=== PATIENT | female | born 1955 | race Caucasian/White ===

== ENCOUNTER 2018-10-11 19:06 | Observation (INO) | payer BC ==
[2018-10-11 20:36] LABS: #Basophils 0.1 thou/uL (0.0-0.2); #Eosinphils 0.1 thou/uL (0.0-0.7); #Lymphocytes 1.6 thou/uL (1.20-3.40); #Monocytes 0.6 thou/uL (0.11-0.59); #Neutrophils 7.1 thou/uL (1.40-6.50); %Basophils 0.6 % (0.0-1.0); %Eosinophils 0.8 % (0.0-10.0); %Lymphocytes 16.4 % (21.0-51.0); %Monocytes 6.6 % (0.0-10.0); %Neutrophils 75.6 % (42.0-75.0); Hemoglobin 13.6 g/dL (12.0-16.0); Mean Corpuscular HGB CONC 31.8 g/dL (32.0-36.0); Mean Corpuscular Hemoglobin 30.9 pg (27.0-31.0); Mean Corpuscular Volume 97.2 fL (78.0-98.0); Mean Platelet Volume 8.6 fL (7.4-10.4); Platelet Count 206 thou/uL (130-400); RBC Distribution Width 12.1 % (11.5-14.5); Red Blood Cell (RBC) Count 4.41 mill/uL (4.20-5.40); White Blood Cell (WBC) Count 9.4 thou/uL (4.8-10.8)
--- NOTE | 2018-10-11 20:43 | CT ---
CT BRAIN 10/11/18 PROVIDED CLINICAL HISTORY: Memory loss and speech problems. FINDINGS: The ventricular system appears normal in size and morphology. There is no evidence for intracranial h emorrhage or mass effect. The extracranial soft tissues and osseous structures demonstrate no acute f indings. IMPRESSION: No evidence for intracranial hemorrhage or mass effect. POS: [facility]
[2018-10-11 20:54] LABS: ALT (SGPT) 14 U/L (8-55); AST (SGOT) 17 U/L (5-34); Albumin 4.6 g/dL (3.4-4.8); Alkaline Phosphatase 80 U/L (40-150); Anion Gap 14 mmol/L (10-20); BUN (Urea Nitrogen) 14 mg/dL (9.8-20.1); Bilirubin, Total 0.4 mg/dL (0.2-1.2); CK (CPK) 113 U/L (29-168); Calc. Creatinine Clearance 0 mL/min (70-130); Calcium 9.5 mg/dL (7.8-10.44); Carbon Dioxide 24 mmol/L (23-31); Chloride 104 mmol/L (98-107); Estimated GFR-MDRD 68; Globulin 2.2 g/dL (2.4-3.5); Glucose 104 mg/dL (80-115); Potassium 3.9 mmol/L (3.5-5.1); Protein, Total 6.8 g/dL (6.0-8.3); Sodium 138 mmol/L (136-145)
--- NOTE | 2018-10-11 23:16 | PDOC.FPRHP ---
- History of Present Illness Chief Complaint: Altered Mental Status History of Present Illness: The patient is a 62 y/o female who presents to the ED with two friends because of AMS. The patient's friends state that the patient had been behaving normally until approximately 6:00 PM, at which point she began to stare off into space. Although she was responsive, the patient's friends state that the patient became disoriented and had no appreciable short-term memory ( i.e. could not remember her name, where she was, how she got there, etc.). This period of AMS lasted approximately 3 hours, and she still did not have any recollection of the day's events at the time of examination in the ED. The patient's friends state that the patient did not display dysarthria, facial grimacing, loss of balance, ataxia, or suffer any noticeable head trauma. Although still somewhat disoriented, the patient denied any history of seizures , headaches, changes or loss of vision, floaters, significant cardiovascular history, significant psychiatric history, recent head trauma, or drug abuse. ED Course: The patient received a CT (Brain) in the ED, which was negative. - Allergies/Adverse Reactions Allergies Allergy/AdvReac Type Severity Reaction Status Date / Time shellfish derived Allergy Severe Rash Verified 10/12/18 00:13 insect venom Allergy Intermediate Swollen Verified 10/12/18 00:15 Lips mold Allergy Intermediate Short of Verified 10/12/18 00:13 Breath Penicillins Allergy Intermediate Short of Verified 10/12/18 00:13 Breath corn Allergy Mild Headache Verified 10/12/18 00:13 Iodinated Contrast Media Allergy Unknown Verified 10/12/18 00:13 azithromycin Allergy Nausea Verified 10/12/18 00:13 citric acid Allergy Stomach Verified 10/12/18 00:13 Ache corn syrup Allergy Headache Verified 10/12/18 00:13 mushroom Allergy Nausea Verified 10/12/18 00:13 Pork/Porcine Containing Allergy Nausea Verified 10/12/18 00:14 Products tramadol [From Ultram] Allergy Nausea Verified 10/12/18 00:13 - Home Medications Medication Instructions Recorded Confirmed Type Lysine [L-lysine] 500 mg PO DAILY 10/11/18 10/11/18 History - History PMHx: HTN, 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 PSHx: Failed Dental Implant (Placed in March and removed in May) FHx: Father (HTN, Dementia, Alzheimer's Disease) Social: Remote Tobacco Abuse (15 PPY, Quit in ), Remote EtOH Abuse (2-3 Drink per Day, Quit in 2011), Denies Drug Abuse - Review of Systems General: denies: fever/chills, weight/appetite/sleep changes, night sweats Eyes: denies: eye pain, vision changes ENT: denies: rhinorrhea Respiratory: denies: cough, shortness of breath Cardiovascular: denies: chest pain Gastrointestinal: denies: nausea, vomiting, diarrhea, abdominal pain Genitourinary: denies: dysuria, discharge Skin: reports: lesions (Complains of occasional oral / vaginal Herpes, contracted in 2012 from ex- (MSM)) Neurological: denies: syncope, seizure, weakness Psychological: denies: anxiety, depression - Vital signs BP: [170/102] HR: [75] RR: [15] Tmax: [98.5] Pox: [98]% on [Room] Wt: [72 kg] - Physical Exam Constitutional: NAD, awake, alert and oriented, well developed HEENT: normocephalic and atraumatic, PERRLA, EOMI, conjunctiva clear, no scleral icterus, grossly normal vision, TM's clear and intact, grossly normal hearing, normal nasal mucosa, MMM, other (Mild granulation tissue noted at dental implant site) Neck: supple, FROM, trachea midline, no LAD, no JVD Chest: no-tender to palpation, no lesions Heart: RRR, normal S1/S2, no murmurs/rubs/gallops, pulses present, no edema Lungs: CTAB, no respiratory distress, good air movement, no rales/rhonchi, no wheezing, no retractions Abdomen: soft, non-tender, no masses/distention Musculoskeletal: normal structure, normal tone, ROM grossly normal Neurological: no focal deficit, CN II-XII intact, normal sensation -Neurological: No changes in sensation, -Dysdiadochokinesia, -[id number], -Past Pointing, - Heel to Jarvis Skin: no rash/lesions, good turgor, no jaundice Heme/Lymphatic: no unusual bruising or bleeding, no petechia, no LAD Psychiatric: normal mood and affect, good judgment and insight FMR H&P: Results - Labs Result Diagrams: 10/11/18 20:26 10/11/18 20:26 Lab results: WBC 9.4 thou/uL (4.8-10.8) 10/11/18 20:26 Hgb 13.6 g/dL (12.0-16.0) 10/11/18 20:26 Hct 42.9 % (36.0-47.0) 10/11/18 20:26 MCV 97.2 fL (78.0-98.0) 10/11/18 20:26 Plt Count 206 thou/uL (130-400) 10/11/18 20:26 Neutrophils % 75.6 % (42.0-75.0) H 10/11/18 20:26 Sodium 138 mmol/L (136-145) 10/11/18 20:26 Potassium 3.9 mmol/L (3.5-5.1) 10/11/18 20:26 Chloride 104 mmol/L (98-107) 10/11/18 20:26 Carbon Dioxide 24 mmol/L (23-31) 10/11/18 20:26 BUN 14 mg/dL (9.8-20.1) 10/11/18 20:26 Creatinine 0.85 mg/dL (0.6-1.1) 10/11/18 20:26 Glucose 104 mg/dL (80-115) 10/11/18 20:26 Calcium 9.5 mg/dL (7.8-10.44) 10/11/18 20:26 Total Bilirubin 0.4 mg/dL (0.2-1.2) 10/11/18 20:26 AST 17 U/L (5-34) 10/11/18 20:26 ALT 14 U/L (8-55) 10/11/18 20:26 Alkaline Phosphatase 80 U/L (40-150) 10/11/18 20:26 Creatine Kinase 113 U/L (29-168) 10/11/18 20:26 Serum Total Protein 6.8 g/dL (6.0-8.3) 10/11/18 20:26 Albumin 4.6 g/dL (3.4-4.8) 10/11/18 20:26 - Radiology Interpretation CT scan - head Status: report reviewed by me (URIEL) Other Additional comment: CTA Head / Neck FMR H&P: A/P - Problem List (1) Altered mental status, unspecified Current Visit: Yes Status: Acute Code(s): R41.82 - ALTERED MENTAL STATUS, UNSPECIFIED (2) HTN (hypertension) Current Visit: Yes Status: Acute Code(s): I10 - ESSENTIAL (PRIMARY) HYPERTENSION - Plan 1. Altered Mental Status TIA vs. Seizure vs. Acute Psychiatric Disturbance Admit to Obs under Stroke Protocol NIH Stroke Scale (0) in ED CTA Head / Neck MRI Brain HbA1C, Lipid Panel Prolactin Level RPR, HIV, HepB & C Panel Consider Neuro Consult Consider Psych Consult Heart Healthy Diet SCDs w/ Enoxaparin 40 mg SC Daily 2. 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 Tenants report that patient suddenly went blank and stopped talking. After a brief period she was able to say "I don't know" when asked questions. She was disoriented but had no changes in speech. There were no reported abnormal movements. Tenants took patient through house to "re-orient" her, but they state they were unsuccessful. They brought her to the ED for further evaluation. Patient able to answer questions appropriately during my evaluation. She states that she thinks maybe she did not drink enough water or eat enough today. Patient states this has not happened previously. She does report an allergy to cellular towers and states that maybe exposure to a cellular tower may be responsible for these symptoms. Patient has not seen a physician since 2011. - Pertinent findings General: Alert and oriented x3. NAD. Very talkative. HEENT: PERRL, EOMI, no facial droop Card: RRR Resp: No respiratory distress Abdomen: Soft, non-tender Ext: No extremity swelling Neuro: Strength 5/5, No focal deficits - Plan Date/Time: 10/11/18 1046 [place], have evaluated this patient and agree with findings/plan as outlined by tax intern resident. Pertinent changes/additions are listed here. AMS likely 2/2 transient global amnesia - No explainable findings for AMS, will rule out TIA - Unlikely seizure given patient had no post-ictal state and no prior history of seizures - Will rule out TIA with CTA head/neck, MRI. - CT brain negative - Patient likely back to baseline - Will hold off on neurology consult pending MRI. If MRI neg will likely d/c home with diagnosis of transient global amnesia - Will risk stratify patient since she has not been to doctor since 2011. HgA1c and FLP pending. - No reason for echo at this time. Low suspicion for cardiac embolic event - Will obtain urine drug screen - PT/OT eval HTN - Treated homeopathically per patient - Allow permissive HTN until completely rule out CVA - Patient would benefit from being started on BP medications at home given initial BP on presentation. Continue to monitor. Previous partner with high risk sexual behavior - Exposure to sexual partner with risky sexual practices (MSM) - No active lesions, but remote history of genital and labial outbreaks - Will check HIV, RPR, Hepatitis panel PT/OT Code status: Full DVT PPX: Lovenox Dispo: Obs on stroke. Plan for possible d/c home tomorrow pending results of above workup. Addendum - Attending - Attending Attestation Date/Time: 10/12/18 [id number] I personally evaluated the patient and discussed the management with Dr. Kumari and team on day of admission. I agree with the History, Examination, Assessment and Plan documented above with any addition or exceptions noted below.
[2018-10-11] MEDS ORDERED: Acetaminophen 325 MG TAB PO PRN (23:34)
[2018-10-11 23:47] VITALS: BMI 24.7
[2018-10-12] MEDS ORDERED: hydrALAZINE 20 MG/ML VIAL SLOW IVP PRN (00:23)
[2018-10-12 00:39] LABS: Syphilis Antibody Nonreactive (Nonreactive); Syphilis Antibody Index 0.08 S/CO (<1.00 Non-Reactive)
[2018-10-12 00:40] LABS: Hep B Core Total Ab Non-Reactive (NonReactive); Hep B Core Total Index 0.15 S/CO (0-0.79)
[2018-10-12 00:44] LABS: HBSAg Index 0.39 S/CO (0-0.99); Hep B Surf Ag Non-Reactive S/CO (NonReactive)
[2018-10-12 00:45] LABS: HBSAB Concentration 1.14 mIU/mL; Hep B Surf AB Non-Reactive (NonReactive); Hep C IgG Ab Non-Reactive (NonReactive)
[2018-10-12 00:46] LABS: HIV (1/2) Antibody/Antigen Non-Reactive (NonReactive)
[2018-10-12 01:26] LABS: Hemoglobin A1c 5.6 % (4.0-6.0)
[2018-10-12] MEDS: predniSONE 50 MG TAB PO SCH ×3 (02:29→14:39)
[2018-10-12 06:07] LABS: Cardiac Risk 4.7 (Less than 4.5)
[2018-10-12] MEDS ORDERED: Lorazepam 1 MG TAB PO PRN (06:59)
--- NOTE | 2018-10-12 07:04 | PDOC.FM ---
- Subjective Subjective: Pt states she has had no further episodes of AMS overnight. Pt states she is feeling fine this morning. Discussed her previous tooth abscess and previous supplementation. - Objective MAR Reviewed: Yes Vital Signs & Weight: Vital Signs (12 hours) Temp Pulse Resp BP Pulse Ox 10/12/18 04:00 97.9 F 65 18 135/70 100 10/11/18 22:47 98.5 F 72 16 155/77 H 99 Weight Weight 71.804 kg I&O: 10/11/18 10/12/18 10/13/18 06:59 06:59 06:59 Intake Total 480 Output Total 800 Balance -320 Result Diagrams: 10/11/18 20:26 10/11/18 20:26 Phys Exam - Physical Examination Constitutional: NAD HEENT: moist MMs Neck: no JVD Respiratory: no wheezing, no rales, no rhonchi, clear to auscultation bilateral Cardiovascular: RRR, no significant murmur Gastrointestinal: soft, non-tender, no distention, positive bowel sounds Musculoskeletal: no edema, pulses present Neurological: non-focal, normal sensation, moves all 4 limbs CNII-XII normal, no cerebellar dysfunction appretiated Lymphatic: no nodes Psychiatric: normal affect, A&O x 3 Skin: cap refill <2 seconds Dx/Plan (1) Altered mental status, unspecified Code(s): R41.82 - ALTERED MENTAL STATUS, UNSPECIFIED Status: Acute (2) HTN (hypertension) Code(s): I10 - ESSENTIAL (PRIMARY) HYPERTENSION Status: Acute - Plan Plan: This is a 62 yo female with no routine medical care and no significant PMH AMS likely 2/2 TIA vs global amnesia -Pending UDS -Pending CTA head and neck (allergy protocol) -Pending MRI brain -Elevated LDL and cholesterol -Normal TSH -Permissive HTN Elevated BP without diagnosis of HTN -Elevated BP on admission, improving -Permissive HTN until TIA is ruled out No consistent Primary care -TSH, A1c, Hep B,C, HIV, RPR negative Supplement use -DK2, vitamin C, olive leaf extract, B complex, Iodine drops, L-lysine Addendum - Attending - Attending Attestation Date/Time: 10/12/18 1053 I personally evaluated the patient and discussed the management with Dr. Perez I agree with the History, Examination, Assessment and Plan documented above with any addition or exceptions noted below. For continued work up AMS note elevated lipid panel. Drug screen pending,no hx migraines, no sign infectious etiology, no evidence seizure activity, BS and electrolytes wnl. Will continue evaluation today with MRI, echocardiogram and carotid doppler. If wnl can consider discharge for further outpatient evaluation and f/u. .Neuro exam non focal. Note some delusional thought processes.
[2018-10-12] MEDS ORDERED: Enoxaparin Sodium 40 MG/0.4 ML SYRINGE SC SCH (09:00)
[2018-10-12] MEDS ORDERED: Aspirin 81 mg Enteric Coated Tablet PO SCH (09:00)
[2018-10-12 10:15] LABS: Amphetamine Not Detected (NotDetected); Barbiturates Screen Not Detected (NotDetected); Benzodiazepine Screen Not Detected (NotDetected); Cocaine Metabolite Screen Not Detected (NotDetected); Medtox Control Line Valid? VALID (VALID); Medtox Reader # READER 1; Methadone Not Detected (NotDetected); Methamphetamine Not Detected (NotDetected); Opiate Screen Not Detected (NotDetected); Oxycodone Screen Not Detected (NotDetected); Phencyclidine (PCP) Not Detected (NotDetected); THC/Cannabinoid Screen Not Detected (NotDetected); Tricyclic Screen Not Detected (NotDetected)
--- NOTE | 2018-10-12 10:48 | MRI ---
MRI BRAIN WITHOUT CONTRAST: HISTORY: Altered mental status CORRELATION: CT scan from 10/11/2018. FINDINGS: No restricted diffusion is seen. There are few foci of T2 prolongation in the periventricular white m atter, consistent with mild chronic small vessel ischemic disease. The ventricular size is appropriate and the basilar cisterns are patent. No evidence of acute infarct, hemorrhage, midline shift or abnormal extra-axial fluid collections is seen. IMPRESSION: No evidence of acute intracranial process.
[2018-10-12 11:33] VITALS: TEMP 98
[2018-10-12] MEDS ORDERED: diphenhydrAMINE 25 MG CAP PO SCH (15:00)
[2018-10-12 15:50] VITALS: BP 125/67
--- NOTE | 2018-10-12 16:46 | CT ---
CT HEAD NONCONTRAST CTA [place] WITH 3D VOLUME RENDERING 10/12/18 CLINICAL HISTORY: History of altered mental status, slurred speech. Reference made to prior brain MRI and head CT 10/12 and 10/11/18, respectively. FINDINGS: Noncontrast brain imaging reveals normal sized ventricular system without acute intracranial hemorrha ge, mass effect or midline shift. Mild chronic microvascular ischemic disease of the cerebral white m atter is present. 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 Otherwise bilateral SARA are patent as are the bilateral MCA and [employer]. The visualized distal ICA, bilaterally, are patent. Cod ominant distal vertebral arteries and basilar artery are patent. 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 There is a focal area of left frontal bone scalloping with an internal mixed density circumscribed focus, which is nonaggressive in appearance. IMPRESSION: 1. No acute abnormality of the [place]. 2. No intracranial hemorrhage or mass effect. 3. Mild chronic microvascular ischemic disease.
--- NOTE | 2018-10-12 17:08 | CT ---
CT ANGIOGRAM OF THE NECK WITH CONTRAST 10/12/18 HISTORY: Altered mental status. COMPARISON: None. FINDINGS: Moderate degenerative disease of the mid cervical spine from C5-C7. No acute fracture. The lung apice s are clear. The visualized portions of the transverse aorta is normal. Ascending aorta measures 3.6 cm in size. There is a few hypodensities of the left lobe of the thyroid all subcentimeter. No cervical adenopath y. The vertebral arteries are codominant. Both vertebral artery origins are patent. Right common carotid artery origin is patent. Per NASCET criteria, no hemodynamically significant marli nosis of the internal carotid artery. Left common carotid artery is patent. Per NASCET criteria, no hemodynamically significant stenosis. IMPRESSION: Patent neck vasculature. POS: HOME
[2018-10-12] MEDS ORDERED: Atorvastatin Calcium 40 MG TAB PO SCH (21:00)
--- NOTE | 2018-10-14 03:15 | DIS ---
DATE OF ADMISSION: 10/11/2018 DATE OF DISCHARGE: 10/12/2018 ADMITTING ATTENDING: Philip Morataya MD DISCHARGING ATTENDING: Ankush Styles MD RESIDENT: Adonis Perez DO CONSULTS: None. PROCEDURES: 1. CT brain with no evidence of intracranial hemorrhage or mass effect. 2. CT angiogram of neck with contrast shows patent neck vasculature. 3. CT angio head shows no acute abnormality of the [place]. No intracranial hemorrhage or mass effect, no mild chronic microvascular ischemic disease. 4. MRI of the brain shows no evidence of acute intracranial process. Echocardiogram shows left ventricle is normal. Ejection fraction 55% to 60%. Left atrium is normal size. Trace mitral regurgitation is present. Structurally normal aortic valve with no significant stenosis and mild regurgitation. PRIMARY DIAGNOSIS: Global amnesia secondary to stress and anxiety. SECONDARY DIAGNOSIS: Reported radiofrequency, hypersensitivity. DISCHARGE MEDICATIONS: Include: 1. Atorvastatin 40 mg p.o. at bedtime. 2. Aspirin 81 mg p.o. daily. DISCONTINUED MEDICATIONS: None. HISTORY OF PRESENT ILLNESS/HOSPITAL COURSE: A 62-year-old female with no significant past medical history, presented to the ER following a 3-hour stint of altered mental status. Friends report that she was conscious, moving, but not answering appropriately. Denied slurred speech. Denied change in gait or function. The patient was seen in the ER. NIH score was zero at the time of ER admission. The patient did not have a repeat episode of this following her admission to the hospital. After being admitted, the patient was monitored on tele monitoring with no sign of cardiac abnormality. The patient underwent this study as above and TIA/stroke was ruled out. Diagnosis of exclusion includes global amnesia due to her stressful day which include dehydration, possibly low serum glucose, stressful social and emotional events involving procedures. At the time of discharge, the patient was in no acute distress. No signs of altered mental status. DISPOSITION: Stable. DISCHARGE INSTRUCTIONS: 1. Location: Home. 2. Diet: Heart healthy. 3. Activity: As tolerated. 4. Followup: Follow up with PCP in [place] and recommend outpatient psychiatry visit to address anxiety and physical symptoms of radio tower exposure. Job ID: [id number]
== END 2018-10-12 18:32 | disposition home or self-care (01) ==
LOC: ERS 19:06 → 2SE 21:15
PROVIDERS: ADMIT Emergency Medicine; ATTEND Emergency Medicine
DX: F41.9 Anxiety disorder, unspecified (principal); F43.9 Reaction to severe stress, unspecified; G45.4 Transient global amnesia; R41.82 Altered mental status, unspecified; I10 Essential (primary) hypertension; F10.11 Alcohol abuse, in remission; E86.0 Dehydration; Z87.891 Personal history of nicotine dependence; Z79.899 Other long term (current) drug therapy; Z88.0 Allergy status to penicillin; Z88.5 Allergy status to narcotic agent; Z88.8 Allergy status to other drugs, medicaments and biological substances; Z91.013 Allergy to seafood; Z91.018 Allergy to other foods; Z91.038 Other insect allergy status; Z91.041 Radiographic dye allergy status
CPT/HCPCS: 36415; 70450; 70496; 70498; 70551; 80053; 80061; 80306; 82550; 83036; 84146; 84443; 84484; 85025; 86704; 86706; 86780; 86803; 87340; 87389; 93306; 96372; G0378; J1650; Q0163